=== PATIENT | female | born 1935 | race Caucasian/White ===

== ENCOUNTER 2018-09-11 14:17 | Emergency (ER) | payer OTHER, MEDICAID ==
[~2018-09-11] VITALS: Ht 152.4 cm; Wt 45.4 kg
[2018-09-11 14:23] VITALS: BP 133/52; Ht 152.4 cm; Wt 45.4 kg
== END 2018-09-11 15:39 | disposition home or self-care (01) ==
LOC: ED 14:17
DX: S91.205D Unspecified open wound of left lesser toe(s) with damage to nail, subsequent encounter (principal); X58.XXXD Exposure to other specified factors, subsequent encounter; I50.9 Heart failure, unspecified; I11.0 Hypertensive heart disease with heart failure; E11.9 Type 2 diabetes mellitus without complications; Z88.2 Allergy status to sulfonamides; Z86.73 Personal history of transient ischemic attack (TIA), and cerebral infarction without residual deficits